=== PATIENT | male | born 1950 ===

== ENCOUNTER 2024-09-17 16:33 | Outpatient (REF) | payer OTHER, SELFPAY ==
[2024-09-17 20:04] LABS: TSH 1.63 uIU/mL (0.36-3.74)
== END 2024-09-17 16:34 | disposition home or self-care (01) ==
LOC: NCHCN 16:33
PROVIDERS: Visit Provider Nurse Practitioner Family
DX: R53.83 Other fatigue (principal)
CPT/HCPCS: 84443